=== PATIENT | female | born 1965 | race African-American/Black ===

== ENCOUNTER 2016-03-27 10:52 | Emergency (ER) | payer OTHER ==
[2016-03-27 10:59] VITALS: RESP 16; TEMP 97.3
--- NOTE | 2016-03-27 11:37 | EDPHY ---
H & P Stated Complaint: sore throat , chest congestion Time Seen by Provider: 03/27/16 11:10 HPI/ROS: HPI: 50-year-old female presents to emergency department with chief concern sore throat, headache, nasal congestion, cough. Symptoms onset suddenly 2 days ago. Reports associated hot and cold spells. Denies fever, dizziness, visual changes, dysphagia, shortness of breath, chest pain, vomiting, diarrhea, rash. Using [id number] cold medicine with some improvement. No history of asthma or pneumonia. She is immunocompetent. Denies significant past medical history. She is a student at [employer] ROS:10 point review of systems is negative other than as stated in HPI Source: Patient Exam Limitations: No limitations - Personal History LMP (Females 10-55): Post Menopausal Current Tetanus/Diphtheria Vaccine: Unsure Current Tetanus Diphtheria and Acellular Pertussis (TDAP): Unsure - Medical/Surgical History Hx Asthma: No Hx Chronic Respiratory Disease: No Hx Diabetes: No Hx Cardiac Disease: No Hx Renal Disease: No Hx Cirrhosis: No Hx Alcoholism: No Hx HIV/AIDS: No Hx Splenectomy or Spleen Trauma: No - Family History Significant Family History: No pertinent family hx - Social History Smoking Status: Never smoked Alcohol Use: Rarely Drug Use: None Additional Social History: [employer] student - Physical Exam Exam: Vital signs reviewed by me General: Awake, alert, calm, cooperative. No acute distress. Head: Atraumatic. EENT: Conjuctiva mildly injected. TMs intact, without redness or bulging. Nasal mucosa is erythematous with moderate clear discharge. Pharynx mildly erythematous. Uvula midline. No tonsillar abscess or exudates. No frontal or maxillary tenderness to percussion. Respiratory: Breathing unlabored. Lungs clear to auscultation bilaterally. No adventitious sounds. CV: Heart rate regular. S1-S2 present. No murmur. GI: Abdomen soft, nontender. Bowel sounds positive x4 quadrants. : Deferred Skin: Warm, dry, intact. No rashes present. Capillary refill brisk. Musculoskeletal: Full ROM all extremities. Neuro: Alert oriented x3. Strength equal in all 4 extremities. Constitutional: Initial Vital Signs Temperature (C) 36.3 C 03/27/16 10:56 Heart Rate 111 H 03/27/16 10:56 Respiratory Rate 16 03/27/16 10:56 Blood Pressure 114/92 H 03/27/16 10:56 O2 Sat (%) 97 03/27/16 10:56 O2 Delivery Mode Room Air Allergies/Adverse Reactions: No Known Allergies Allergy (Unverified 03/27/16 10:59) Medical Decision Making ED Course/Re-evaluation: Nontoxic 50-year-old female presents to emergency department with URI symptoms. She is eating and drinking. She has no vomiting. She has no shortness of breath or chest pain. Lungs are clear to auscultation bilaterally without any adventitious sounds. She is very minimal if any facial tenderness. Symptoms been present for 2 days. She has laryngitis as well. Her symptoms are classically viral in nature. Antibiotics not warranted at this time. She has been counseled regarding need for recheck should symptoms change or worsen, or if she develops shortness of breath, chest pain, severe facial or tooth pain, vomiting Differential Diagnosis: Differential diagnosis includes but is not limited to viral upper respiratory infection, influenza, bronchitis, pneumonia Departure - Departure Disposition: Home, Routine, Self-Care Clinical Impression: Upper respiratory infection Qualifiers: URI type: unspecified viral URI Qualified Code(s): J06.9 - Acute upper respiratory infection, unspecified Condition: Good Instructions: Upper Respiratory Infection (ED) Additional Instructions: Plan: Drink plenty of fluids. Rest. You may use over the counter cough and cold medicine for symptom relief. You may use Tylenol or Ibuprofen/alleve for fever and pain control You may use 600 mg of ibuprofen every 6 hours for fever, inflammation, or pain. Always take ibuprofen with food and stay well hydrated while taking. Do not exceed the maximum allowable dose in a 24 hour period which is 2400 mg. (or alleve twice daily as directed on bottle) You may use 1000mg of Tylenol every 8 hours. This may be staggered with the ibuprofen. Do not exceed the maximum dose in a 24 hour period which is 3 GM or 3000 mg. Use saline spray or saline irrigation to each nostril twice daily-morning and evening. Use Flonase (nasal steroid) 2 puffs in each nostril first thing in the morning while symptoms persist (OTC) You may use Mucinex/guaifenesin over the counter to help expectorate mucus with your cough. For sore throat, gargle with warm salt water three times daily. Return to Urgent Care or ER if you develop chest pain, difficulty breathing, or difficulty swallowing. Follow up as directed within 3-4 days for recheck if symptoms have not improved- -tell the office you are an "ER follow up appointment when you call. Return here promptly for worsening symptoms such as facial/tooth pain, chest pain, shortness of breath, unremitting fever, nausea, vomiting, difficulty swallowing. Referrals: NONE *PRIMARY CARE P,. [Primary Care Provider] - As per Instructions Star Barrios DO [Doctor of Osteopathy] - As per Instructions Stand Alone Forms: Work Excuse
[2016-03-27 11:53] VITALS: BP 119/81; PULSE 88; O2SAT 98
== END 2016-03-27 11:52 | disposition home or self-care (01) ==
DX: J06.9 Acute upper respiratory infection, unspecified (principal)